=== PATIENT | male | born 1985 | race Hispanic/Latino ===

== ENCOUNTER 2020-08-09 12:48 | Emergency (ER) | payer OTHER | END 2020-08-09 13:55 | disposition home or self-care (01) | LOC: EDH 12:48 | DX: S72.92XD Unspecified fracture of left femur, subsequent encounter for closed fracture with routine healing (principal); S40.812D Abrasion of left upper arm, subsequent encounter; Z79.899 Other long term (current) drug therapy; Z72.0 Tobacco use; V89.2XXD Person injured in unspecified motor-vehicle accident, traffic, subsequent encounter | CPT/HCPCS: 99282 ==